=== PATIENT | male | born 1985 | race Caucasian/White ===

== ENCOUNTER 2022-02-19 06:57 | Outpatient (REF) | payer BC, SELFPAY ==
[2022-02-19 07:05] LABS: MANUAL DIFF FLAG NO
[2022-02-19 07:35] LABS: Basophils Percent Auto 0.3 % (0-2); Eosinophils Absolute Auto 0.2 X10*3/uL (0.0-0.4); Eosinophils Percent Auto 2.8 % (0-4); Hematocrit 45.6 % (42.0-52.0); Hemoglobin 15.3 g/dl (14.0-18.0); Imm Gran Abs Auto 0.02 X10*3/uL (0.00-0.03); Imm Gran Pct Auto 0.3 % (0.0-0.4); Lymphocytes Absolute Auto 2.3 X10*3/uL (1.2-4.9); Lymphocytes Percent Auto 38.9 % (20-40); Mean Corpuscular HGB Conc 33.6 g/dl (31.0-36.0); Mean Corpuscular Hemoglobin 29.1 pg (27.0-33.0); Mean Corpuscular Volume 86.9 fL (80.0-98.0); Mean Platelet Volume 8.9 fL (9.4-12.4); Monocytes Absolute Auto 0.8 X10*3/uL (0.1-1.2); Monocytes Percent Auto 12.5 % (2-11); Neutrophils Absolute Auto 2.7 x10*3/uL (2.0-8.3); Neutrophils Percent Auto 45.2 % (45-73); Platelet Count 285 X10*3/uL (160-400); Red Blood Count 5.25 X10*6/uL (4.60-5.80); Red Cell Distribution Width 13.2 % (11.0-16.0)
[2022-02-19 08:02] LABS: Appearance Urine Clear; Color Urine Yellow; Glucose Urine UA Negative (Negative); Leukocyte Esterase Urine Negative (Negative); Nitrite Urine Negative (Negative); Specific Gravity - Urine 1.025 (1.005-1.025); Urine Blood Negative (Negative); Urine Ketones Negative (Negative); Urine Protein Negative (Neg-Trace)
[2022-02-19 08:06] LABS: Alanine Aminotransferase 17 U/L (0-40); Albumin Level 4.2 g/dL (3.5-5.0); Alkaline Phosphatase 76 U/L (39-117); Anion Gap 11 (12-20); Aspartate Amino Transferase 22 U/L (5-37); Bilirubin Total 0.8 mg/dL (0.0-1.0); Blood Urea Nitrogen 11 mg/dL (9-16); Calcium 9.4 mg/dL (8.4-10.2); Carbon Dioxide 27 mmol/L (22-29); Chloride 107 mmol/L (96-108); Cholesterol 194 mg/dL; Estimated Glomerular Filt Rate > 60; Glucose Fasting 90 mg/dL (60-99); HDL Cholesterol 44 mg/dL; LDL Cholesterol Calculated 133 mg/dl; Potassium 4.3 mmol/L (3.3-5.1); Sodium 141 mmol/L (135-145); Total Protein 6.8 g/dL (6.5-8.0); Triglycerides 85 mg/dL
[2022-02-19 08:24] LABS: TSH reflex Free T4 2.54 uIU/mL (0.32-4.0)
== END 2022-02-19 06:58 | disposition home or self-care (01) ==
LOC: HO.LAB 06:57
PROVIDERS: PCP Nurse Practitioner Family; Visit Provider Nurse Practitioner Family
DX: Z00.00 Encounter for general adult medical examination without abnormal findings (principal)
CPT/HCPCS: 36415; 80053; 80061; 81003; 84443; 85025

== ENCOUNTER 2023-02-20 10:16 | Outpatient (AMB) | payer OTHER, SELFPAY ==
--- NOTE | 2023-02-20 10:41 | A.OFFPC_ITS ---
Vital Signs 02/20/23 10:44 Height 5 ft 7 in Weight 171 lb BMI 26.8 BP 114/80 Blood Pressure Location Rt brachial Position Sitting Pulse 64 Pulse Source Pulse Oximeter Pulse Oximetry (%) 98 Oxygen Delivery Method Room Air Intake Visit Reasons: Annual PE Intake Note: Patient here for physical exam. no new issues or concerns. Allergies No Known Allergies Allergy (Verified 02/20/23 12:03) Medication List - Last Reconciled 02/20/23 by [facility] Gamez No Known Home Meds Tobacco use date assessed: 02/20/23 Dental Screening Dental Screen Date: 02/20/23 Did you have a dental visit in the last 12 months?: No Did you have a dental problem in the last 6 months where you did not have access to dental care?: No Was dental information given to patient?: No HPI Annual PE HPI Details Pt is here for a PE. Will order labs. 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 1. Little interest or pleasure in doing things: not at all 2. Feeling down, depressed, or hopeless: not at all 3. Trouble falling or staying asleep, or sleeping too much: several days 4. Feeling tired or having little energy: not at all 5. Poor appetite or overeating: not at all 6. Feeling bad about yourself - or that you are a failure or have let yourself or your family down: not at all 7. Trouble concentrating on things, such as reading the newspaper or watching television: not at all 8. Moving or speaking so slowly that other people could have noticed. Or the opposite - being so fidgety or restless that you have been moving around a lot more than usual: not at all 9. Thoughts that you would be better off or of hurting yourself in some way: not at all Total score: 1 Depression Screening Interpretation: Negative Depression Screening Done: Yes 46382 - PHQ-9 Billing: Yes Source: Developed by Drs. Rudy Wasserman, Jr Tejeda and colleagues, with an educational lamar from [email or web address] Thrive Questionnaire Date Thrive assessed: 02/20/23 I am a: Patient What is your living situation today?: I have a steady place to live Within the past 12 months, did the food you bought not last and you didn't have the money to get more?: Never true Within the past 12 months, did you worry whether your food would run out before you got money to buy more?: Never true Do you have trouble paying for medicines?: No Do you have trouble getting transportation to medical appointments?: No Do you have trouble paying your heating and electricity bill?: No Do you have trouble taking care of your child, family member or friend?: No Do you have trouble with day-to-day activities such as bathing, preparing meals, shopping, managing finances, etc.?: No Are you currently unemployed and looking for a job?: No Are you interested in more education?: No AUDIT C Alcohol Use Questionnaire (AUDIT-C) 1. How often do you have a drink containing alcohol?: Never 3. How often do you have six or more drinks on one occasion?: Never Total Score: 0 Score Reviewed/Action Taken: No AFSHIN-7 AMB Questionnaire AFSHIN-7 Date AFSHIN - 7 assessed: 02/20/23 Feeling nervous, anxious, or on edge: 0 = Not at all Not being able to stop or control worryin = Not at all Worrying too much about different things: 0 = Not at all Trouble relaxin = Not at all Being so restless that it is hard to sit still: 0 = Not at all Becoming easily annoyed or irritable: 1 = Several days Feeling afraid as if something awful might happen: 0 = Not at all Total AFSHIN-7 score (0-4 normal; 5-9 mild; 10-14 moderate; 15-21 severe): 1 Source: Developed by Maegan Genao Kurt Kroenke and colleagues, with an educational lamar from [employer]. AFSHIN-7 Assessment Billing AFSHIN-7 Assessment Tool: AFSHIN-7 Assessment 08613 Review of Systems Const Denies chills and Denies fever(s) Eyes Denies blurry vision ENT Denies vertigo, Denies dizziness and Denies sore throat Card Denies chest pain at rest, Denies chest pain with activity, Denies diaphoresis, Denies dyspnea and Denies dyspnea on exertion Resp Denies cough, Denies dyspnea, Denies dyspnea on exertion and Denies wheezing GI Denies abdominal pain, Denies melena, Denies hematochezia, Denies constipation, Denies diarrhea and Denies loose stools Denies hematuria Musc Denies numbness and Denies tingling Skin/Breast Denies lesions Neuro Denies vertigo, Denies dizziness, Denies numbness and Denies tingling Psych Denies anxiety, Denies depression, Denies homicidal ideation, Denies suicidal ideation and Denies other (substance abuse) Aller/Immun Denies wheezing Physical exam (Primary Care) Vital Signs: Last Vital Signs Pulse 64 02/20/23 10:44 BP 114/80 02/20/23 10:44 Pulse Ox 98 02/20/23 10:44 Oxygen Delivery Method Room Air 02/20/23 10:44 BMI result Body Mass Index 26.8 Tobacco/Smoking Status: Tobacco use Status Tobacco use date assessed 02/20/23 02/20/23 10:46 Patient Tobacco Use Status Never used Tobacco 02/20/23 10:43 e-Cigarette/Vaping Use Never Used 02/20/23 10:43 PHQ-9: PHQ-9 Score PHQ-9: Total score 1 02/20/23 11:13 Depression Screening Interpretation: Negative Thrive Assessment: Date of Thrive Assessment Date Thrive assessed 02/20/23 02/20/23 11:13 Const General: cooperative Nutritional Appearance: well nourished Orientation/consciousness: patient oriented x3 HENMT Head: Yes normal to inspection, Yes normocephalic and Yes atraumatic Ears: TM's normal bilaterally Eyes General: appearance normal, both eyes and all related structures Alignment and Position: alignment normal and position normal Neck Neck: Yes normal visual inspection and Yes no lymphadenopathy Thyroid: Thyroid normal Resp Effort & Inspection: normal respiratory effort Auscultation: clear to auscultation bilaterally Cardio Rate: regular rate Rhythm: regular rhythm Heart sounds: S1 normal heart sound present, S2 normal heart sound present and no murmurs GI Palpation (GI): Soft to palpation and nontender Auscultation: normal bowel sounds Male General Exam: Yes normal external exam Penis: normal penis Scrotum: scrotum normal, testes descended bilaterally and no inguinal hernias Testes: no testicular mass Skin Rashes: no rashes Neuro General: patient oriented x3, moves all extremities, no focal motor deficits and deep tendon reflexes 2+ bilaterally Romberg Test: Negative Psych Appearance: grossly normal Mental Status: mental status grossly normal Speech and movement: Normal speech and movement present Affect: normal affect Attitude: cooperative Thought process: Normal thought process present Thought content: Normal thought content present Insight: Good insight present (Psych) Judgement: Good judgement present (Psych) Assessment and Plan Assessment & Plan (1) Physical exam: Code(s): Z00.00 - Encounter for general adult medical examination without abnormal findings Plan: Labs ordered Plan The patient agreed to the use of a medical coding manager for this encounter. Scribed for [facility] Olvera by Shamika Ruelas medical coding manager, on 02/20/2023 at 10:50 EST. Orders: Orders Complete Blood Count Auto Diff Today Z00.00 - Encounter for general adult medical examination without abnormal findings Comprehensive [place]. Panel Fast Today Z00.00 - Encounter for general adult medical examination without abnormal findings TSH reflex Free T4 Today Z00.00 - Encounter for general adult medical examination without abnormal findings UA CC w/rflx Micro + Cult Today Z00.00 - Encounter for general adult medical examination without abnormal findings Lipid Panel Today Z00.00 - Encounter for general adult medical examination without abnormal findings Coding Level of Care Code Est Pt Prev Care 18-39y(12434) Diagnoses Physical exam Z00.00 Additional Codes AFSHIN-7 Assessment Billing - AFSHIN-7 Assessment Tool: AFSHIN-7 Assessment 90079 ([id number])
[2023-02-20 10:44] VITALS: BP 114/80; PULSE 64; O2SAT 98; BMI 26.8
== END 2023-02-20 11:42 | disposition home or self-care (01) ==
PROVIDERS: Visit Provider Nurse Practitioner Family
DX: Z00.00 Encounter for general adult medical examination without abnormal findings (principal)
CPT/HCPCS: 99395

== ENCOUNTER 2024-02-23 09:48 | Outpatient (AMB) | payer OTHER, SELFPAY ==
[2024-02-23 09:50] VITALS: BP 110/74; PULSE 76; O2SAT 98; BMI 27.2
--- NOTE | 2024-02-23 09:50 | A.OFFPC_ITS ---
Vital Signs 02/23/24 09:50 Height 5 ft 7 in Weight 174 lb BMI 27.2 BP 110/74 Blood Pressure Location Rt brachial Position Sitting Pulse 76 Pulse Source Pulse Oximeter Pulse Oximetry (%) 98 Intake Visit Reasons: PE Intake Note: pt is here for PE Nightman Required: No Accompanied by: Self / Same As Patient Allergies No Known Allergies Allergy (Verified 02/23/24 09:51) Medication List - Last Reconciled 02/23/24 by [facility] Gamez No Known Home Meds Tobacco use date assessed: 02/23/24 Dental Screening Dental Screen Date: 02/23/24 Did you have a dental visit in the last 12 months?: Yes Did you have a dental problem in the last 6 months where you did not have access to dental care?: No Was dental information given to patient?: Patient has dentist HPI PE HPI Details History of Present Illness The patient is a 38-year-old male presenting for an annual physical examination. During the evaluation, the patient reported no specific health concerns. He denied any history or present issues with chest pain, shortness of breath, constipation, or diarrhea. Additionally, the patient confirmed there are no symptoms of anxiety or depression, nor any suicidal or homicidal ideations. Refused flu vaccine Health Maintenance Social History Review of Systems - Cardiovascular: Denies chest pain. - Respiratory: Denies shortness of breat h. - Gastrointestinal: Denies constipation and diarrhea. - Psychological: Denies suicidal ideatio n, homicidal ideation, anxiety, depression. Physical Exam General: Cooperative, healthy appearing, comfortable, no acute distress and well developed Orientation: Patient oriented x3 Limitations: No limitations Head: Normal to inspection Ears: Hearing grossly normal bilaterally Nose: Normal external nose present Face and sinus: Normal facial exam Eyes: Appearance normal, both eyes and all related structures Neck: Normal visual inspection and Yes full ROM Respiratory: Normal respiratory effort and able to speak in complete sentences. Clear to auscultation bilaterally Cardiovascular: Regular rate and rhythm. Normal S1 and S2 GI: Normal to inspection. Soft to palpation and nontender Skin: No rashes or lesions noted Neuro: Patient oriented x3 Extremities: Normal to inspection Results Plan - Conduct thorough annual physical exami [facility] [place] as scheduled. - Reassure patient and continue routine health screenings and preventative care as required. Patient was informed and verbally consented to the use of an ambient scribe for clinic note documentation during this visit. Discussion Notes During the visit, I confirmed with the patient that there are no current health issues or psychological concerns. We reviewed the importance of routine physical evaluations as part of preventative healthcare. I reassured the patient that screenings and preventative measures are leo components of maintaining health and well-being. We did not discuss any specific diagnostic studies or procedures. No follow-ups or return precautions were indicated beyond continuing regular health maintenance. Patient Instructions - Continue with your usual health regime n. - Maintain regular annual physical exami nation appointments. - Contact the clinic for any new health concerns that may arise. [facility] Surgical History No pertinent past surgical history Family History Father High blood pressure Mother No problems noted. Social History Housing: House Patient Tobacco Use Status: Never used Tobacco e-Cigarette/Vaping Use: Never Used Second Hand Smoke Exposure: No service: No Current occupational status: employed Current occupation: [employer] [address] Current occupational exposures/hazards: No Cognitive needs: No Hearing needs: No Vision needs: No Questionnaire PHQ-9 Over the last 2 weeks, how often have you been bothered by any of the following problems? 1. Little interest or pleasure in doing things: not at all 2. Feeling down, depressed, or hopeless: not at all 3. Trouble falling or staying asleep, or sleeping too much: not at all 4. Feeling tired or having little energy: not at all 5. Poor appetite or overeating: not at all 6. Feeling bad about yourself - or that you are a failure or have let yourself or your family down: not at all 7. Trouble concentrating on things, such as reading the newspaper or watching television: not at all 8. Moving or speaking so slowly that other people could have noticed. Or the opposite - being so fidgety or restless that you have been moving around a lot more than usual: not at all 9. Thoughts that you would be better off or of hurting yourself in some way: not at all Total score: 0 Depression Screening Interpretation: Negative Depression Screening Done: Yes 12145 - PHQ-9 Billing: Yes Source: Developed by Drs. Rudy Wasserman, Maegan Ledesma, Jr Garcia and colleagues, with an educational lamar from [employer]. Thrive Questionnaire Date Thrive assessed: 02/23/24 I am a: Patient What is your living situation today?: I have a steady place to live Within the past 12 months, did the food you bought not last and you didn't have the money to get more?: Never true Within the past 12 months, did you worry whether your food would run out before you got money to buy more?: Never true Do you have trouble paying for medicines?: No Do you have trouble getting transportation to medical appointments?: No Do you have trouble paying your heating and electricity bill?: No Do you have trouble taking care of your child, family member or friend?: No Do you have trouble with day-to-day activities such as bathing, preparing meals, shopping, managing finances, etc.?: No Are you currently unemployed and looking for a job?: No Are you interested in more education?: Yes Please select the resources that you would like help with: None Currently or been in a relationship where the following occur: No concerns reported THRIVE Score: 0 AUDIT C Alcohol Use Questionnaire (AUDIT-C) 1. How often do you have a drink containing alcohol?: Never 3. How often do you have six or more drinks on one occasion?: Never Total Score: 0 Score Reviewed/Action Taken: Yes AFSHIN-7 AMB Questionnaire AFSHIN-7 Date AFSHIN - 7 assessed: 02/23/24 Feeling nervous, anxious, or on edge: 0 = Not at all Not being able to stop or control worryin = Not at all Worrying too much about different things: 0 = Not at all Trouble relaxin = Not at all Being so restless that it is hard to sit still: 0 = Not at all Becoming easily annoyed or irritable: 0 = Not at all Feeling afraid as if something awful might happen: 0 = Not at all Total AFSHIN-7 score (0-4 normal; 5-9 mild; 10-14 moderate; 15-21 severe): 0 Source: Developed by Maegan Genao, Jr Kroenke and colleagues, with an educational lamar from [employer]. AFSHIN-7 Assessment Billing AFSHIN-7 Assessment Tool: AFSHIN-7 Assessment 28572 Physical exam (Primary Care) Vital Signs: Last Vital Signs Pulse 76 02/23/24 09:50 BP 110/74 02/23/24 09:50 Pulse Ox 98 02/23/24 09:50 BMI result Body Mass Index 27.2 Tobacco/Smoking Status: Tobacco use Status Tobacco use date assessed 02/23/24 02/23/24 09:52 Patient Tobacco Use Status Never used Tobacco 02/23/24 09:52 e-Cigarette/Vaping Use Never Used 02/23/24 09:52 PHQ-9: PHQ-9 Score PHQ-9: Total score 0 02/23/24 09:52 Depression Screening Interpretation: Negative Thrive Assessment: Date of Thrive Assessment Date Thrive assessed 02/23/24 02/23/24 09:52 Currently or been in a relationship where the following occur: No concerns reported Coding Level of Care Code Est Pt Prev Care 40-64y(21098) Diagnoses Physical exam Z00.00 Additional Codes AFSHIN-7 Assessment Billing - AFSHIN-7 Assessment Tool: AFSHIN-7 Assessment 69768 ([id number]) PHQ-9 - 20950 - PHQ-9 Billing: Yes ([id number]) Assessment & Plan Assessment & Plan (1) Physical exam: Code(s): Z00.00 - Encounter for general adult medical examination without abnormal findings Category: Medical Plan . Orders: Orders Comprehensive [place]. Panel Fast Today Z00.00 - Encounter for general adult medical examination without abnormal findings Complete Blood Count Auto Diff Today Z00.00 - Encounter for general adult medical examination without abnormal findings TSH reflex Free T4 Today Z00.00 - Encounter for general adult medical examination without abnormal findings UA CC w/rflx Micro + Cult Today Z00.00 - Encounter for general adult medical examination without abnormal findings Lipid Panel Today Z00.00 - Encounter for general adult medical examination without abnormal findings
== END 2024-02-23 10:38 | disposition home or self-care (01) ==
PROVIDERS: PCP Nurse Practitioner Family; Visit Provider Nurse Practitioner Family
DX: Z00.00 Encounter for general adult medical examination without abnormal findings (principal)

== ENCOUNTER → 2024-02-23 09:48 | Outpatient (BNVA) | payer OTHER, SELFPAY | PROVIDERS: PCP Nurse Practitioner Family; Visit Provider Nurse Practitioner Family | DX: Z00.00 Encounter for general adult medical examination without abnormal findings (principal) | CPT/HCPCS: 96127 ==

== ENCOUNTER 2024-07-06 22:57 | Emergency (ER) | payer OTHER, SELFPAY ==
--- NOTE | ~2024-07-06 | CT_ITS ---
CLINICAL HISTORY: LLQ pain divertic vs renal olic CT abdomen and pelvis with contrast Comparison: None Findings: No consolidation or effusion. There is left-sided obstructive uropathy with delayed nephrogram, mild hydroureteronephrosis and a small amount of perinephric fluid. An obstructing 2 mm calculus is seen at the ureterovesicular junction. The gallbladder and the rest of the solid organs demonstrate no significant abnormalities. No bowel obstruction, pneumoperitoneum, or pneumatosis. Pelvic contents unremarkable. Normal appendix. No acute fracture. IMPRESSION: There is left-sided obstructive uropathy with delayed nephrogram, mild hydroureteronephrosis and a small amount of perinephric fluid. An obstructing 2 mm calculus is seen at the ureterovesicular junction. This document has been electronically signed by: Jimy Cortez MD on 07/07/2024 11:49:26
[2024-07-06 23:15] VITALS: BP 132/82; PULSE 59; RESP 18; TEMP 36.1; O2SAT 100; BMI 25.8
[2024-07-06 23:55] LABS: MANUAL DIFF FLAG NO
[2024-07-06 23:56] LABS: Basophils Percent Auto 0.2 % (0-2); Eosinophils Absolute Auto 0.1 X10*3/uL (0.0-0.4); Eosinophils Percent Auto 1.1 % (0-4); Hemoglobin 15.1 g/dl (14.0-18.0); Imm Gran Abs Auto 0.03 X10*3/uL (0.00-0.03); Imm Gran Pct Auto 0.3 % (0.0-0.4); Lymphocytes Absolute Auto 1.7 X10*3/uL (1.2-4.9); Lymphocytes Percent Auto 18.5 % (20-40); Mean Corpuscular HGB Conc 35.1 g/dl (31.0-36.0); Mean Corpuscular Hemoglobin 29.8 pg (27.0-33.0); Mean Platelet Volume 8.8 fL (9.4-12.4); Monocytes Absolute Auto 0.8 X10*3/uL (0.1-1.2); Monocytes Percent Auto 8.5 % (2-11); Neutrophils Absolute Auto 6.6 x10*3/uL (2.0-8.3); Neutrophils Percent Auto 71.4 % (45-73); Platelet Count 280 X10*3/uL (160-400); Red Blood Count 5.06 X10*6/uL (4.60-5.80); Red Cell Distribution Width 13.2 % (11.0-16.0); White Blood Count 9.3 X10*3/uL (4.8-10.8)
[2024-07-07 00:07] LABS: Appearance Urine Turbid; Color Urine Yellow; Glucose Urine UA Negative (Negative); Leukocyte Esterase Urine Negative (Negative); Nitrite Urine Negative (Negative); PH >= 9.0 (5.0-9.0); Specific Gravity - Urine 1.025 (1.005-1.025); Urine Blood Negative (Negative); Urine Ketones Trace mg/dL (Negative); Urine Protein Trace mg/dL (Neg-Trace)
[2024-07-07 00:13] LABS: Alanine Aminotransferase 21 U/L (0-40); Albumin Level 4.7 g/dL (3.5-5.0); Alkaline Phosphatase 72 U/L (39-117); Anion Gap 13 (12-20); Aspartate Amino Transferase 28 U/L (5-37); Bilirubin Direct 0.1 mg/dL (0.0-0.5); Bilirubin Total 0.5 mg/dL (0.0-1.0); Blood Urea Nitrogen 14 mg/dL (9-16); Calcium 9.5 mg/dL (8.4-10.2); Carbon Dioxide 24 mmol/L (22-29); Chloride 107 mmol/L (96-108); Creatinine Clr Calc Pharmacy 75.8; Estimated Glomerular Filt Rate > 60; Glucose Random 128 mg/dL (60-115); Lipase 19 U/L (8-78); Potassium 3.7 mmol/L (3.3-5.1); Sodium 140 mmol/L (135-145); Total Protein 7.3 g/dL (6.5-8.0)
[2024-07-07] MEDS: Ketorolac Tromethamine 15 MG/ML VIAL IVPUSH (03:13)
[2024-07-07] MEDS: Morphine Sulfate 4 MG/ML CARTRIDGE IVPUSH (03:14)
[2024-07-07] MEDS: 0.9 % Sodium Chloride 1,000 ML 999 ML IV (03:17)
[2024-07-07 03:21] VITALS: BP 135/82; PULSE 78; RESP 20; TEMP 36.7; O2SAT 99
--- NOTE | 2024-07-07 03:50 | ED_ITS ---
HPI - General Adult General Chief complaint: Abdominal Pain Stated complaint: severe abd pain Time Seen by Provider: 07/07/24 02:23 Source: patient Limitations: no limitations History of Present Illness ED Provider: Lili Melendez PA-C HPI narrative: 38-year-old otherwise healthy male presents with left lower abdominal pain that began this evening. Pain has become severe, unable to describe the nature of his discomfort. The pain radiates to the groin at times. The patient feels as if he has the urge to have a bowel movement and urinate. Associated nausea vomiting. Denies history of kidney stones, dysuria or hematuria. No fever. No diarrhea. Denies testicular pain or swelling. Related Data Previous Rx's ?Medication ?Instructions ?Recorded ondansetron 4 mg disintegrating 4 mg PO Q8H PRN nausea and 07/07/24 tablet vomiting #14 tabs oxycodone 5 mg capsule 5 mg PO Q6H PRN breakthrough pain 07/07/24 #5 caps tamsulosin 0.4 mg capsule 0.4 mg PO DAILY #14 caps 07/07/24 Allergies Allergy/AdvReac Type Severity Reaction Status Date / Time No Known Allergies Allergy Verified 07/06/24 23:19 Review of Systems 2 Review of Systems: Yes all other systems are reviewed and are negative Constitutional: Constitutional: Denies fatigue and Denies fever(s) Cardiovascular: Cardiovascular: Denies chest pain and Denies dyspnea Respiratory: Respiratory: Denies cough and Denies dyspnea Gastrointestinal: Gastrointestinal: Reports abdominal pain, Denies diarrhea, Reports nausea and Reports vomiting Genitourinary: Genitourinary: Denies hematuria, Denies dysuria, Denies flank pain, Denies penile discharge, Denies scrotal swelling and Denies testicular pain Endocrine: Endocrine: Denies fatigue [facility] Past Medical History Attestation statement: The following information was validated with the patient. Surgical History No pertinent past surgical history Family History Family History Father High blood pressure Mother No problems noted. 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[address] Current occupational exposures/hazards: No Cognitive needs: No Hearing needs: No Vision needs: No Physical Exam ED Vital Signs: Vital Signs - 24 hr 07/06/24 23:15 07/07/24 03:21 07/07/24 05:30 Temperature 97.0 F 98.1 F 98.0 F Pulse Rate 59 78 76 Respiratory Rate 18 20 20 Blood Pressure 132/82 135/82 116/72 Pulse Oximetry 100 99 97 Oxygen Delivery Method Room Air Room Air Room Air 07/07/24 07:53 07/07/24 10:22 Temperature 97.7 F 97.7 F Pulse Rate 72 59 Respiratory Rate 16 18 Blood Pressure 112/70 123/71 Pulse Oximetry 96 97 Oxygen Delivery Method Room Air Room Air BMI result Body Mass Index 25.8 Const Other: Alert Orientation/consciousness: patient oriented x3 Resp Effort & Inspection: normal respiratory effort Cardio Other: Normal peripheral perfusion GI Other: Abdomen is soft, nontender nondistended no guarding, General: Yes no CVA tenderness Back/Spine/Pelvis Back: no CVA tenderness Skin Other: Warm dry no rash Neuro General: patient oriented x3, gait normal, no focal motor deficits and CN's II- XI intact bilaterally Psych Other: Cooperative Course Course Course Narrative: Signed out to night team pending imaging and final disposition Medications Administered Discontinued Medications Generic Name Dose Route Start Last Admin Trade Name Caseyq PRN Reason Stop Dose Admin Sodium Chloride 1,000 mls @ 999 mls/hr 07/07/24 03:00 07/07/24 07:12 Ns IV 07/07/24 04:00 Infused .Q1H1M [place] Infusion Iohexol 85 ml 07/07/24 03:54 07/07/24 03:54 Iohexol 350 Mg/Ml 100 Ml Infus..Btl IV 07/07/24 03:55 85 ml ONCE ONE Administration Ketorolac Tromethamine 15 mg 07/07/24 02:52 07/07/24 03:13 Ketorolac Tromethamine 15 Mg/Ml Vial IVPUSH 07/07/24 02:53 15 mg ONCE ONE Administration Morphine Sulfate 4 mg 07/07/24 02:52 07/07/24 03:14 Morphine Sulfate 4 Mg/Ml Cartridge IVPUSH 07/07/24 02:53 4 mg ONCE ONE Administration Protocol Medical Decision Making Medical Decision Making [facility] Narrative: 38-year-old otherwise healthy male presents with left lower abdominal pain that began this evening. Pain has become severe, unable to describe the nature of his discomfort. The pain radiates to the groin at times. The patient feels as if he has the urge to have a bowel movement and urinate. Associated nausea vomiting. Denies history of kidney stones, dysuria or hematuria. No fever. No diarrhea. Denies testicular pain or swelling. No chronic issues History: Per patient I have considered the following differential diagnoses: Renal colic, diverticulitis, UTI, pyelonephritis, torsion Plan: Given distribution of discomfort in nature of symptoms, I am considering diverticulitis versus renal colic. It is really unclear. Screening labs including a urinalysis were already obtained from triage, they are overall all unremarkable, no hematuria urine not infected etc.. Obtaining a CT scan. Giving Toradol and morphine for pain along with IV fluid. Thought about torsion, however the patient denies testicular pain or swelling. He has no CVA tenderness, is afebrile, without urinary symptoms to suggest pyelonephritis. I have independently reviewed the following tests: Labs: No leukocytosis, not anemic, no electrolyte abnormality noted, urine not infected no hematuria CT abdomen and pelvis is pending at the time of sign-out 09:24 I assumed care of this patient from my colleague, physician employment legal assistant Lili Melendez at 04:00 hours patient was pending CT scan abdomen pelvis with IV contrast. At the end of my shift, the CT scan has been done but the radiologist has not read the study at therefore the patient's care was turned over to my colleague, Dr. Rafita Arora. [id number] - I assumed care of this patient from Dr. Leigh with disposition pending CT imaging. CT imaging demonstrates IMPRESSION: There is left-sided obstructive uropathy with delayed nephrogram, mild hydroureteronephrosis and a small amount of perinephric fluid. An obstructing 2 mm calculus is seen at the ureterovesicular junction. This document has been electronically signed by: Jimy Cortez MD on 07/07/2024 11:49:26 Dictated By: Jimy Cortez MD Signed By: <Electronically signed by Jimy Cortez MD in OV> 07/07/24 11 on reexamination, patient is well-appearing and in no acute distress. Patient reports mild discomfort but states that pain is well- controlled at this time. I reviewed the patient's CT imaging, blood work and urinalysis as below. I discussed these results with the patient. The patient is provided tamsulosin, Tylenol and ibuprofen. ?There is no indication for further emergent evaluation in this otherwise well-appearing patient as above. ?Patient is provided written and verbal instructions, educational materials, recommendations for outpatient follow-up, prescription for oxycodone/Zofran/tamsulosin, referral to Urology, strict return precautions and teach back is performed. ?Patient states understanding and agreement with plan of care. ?Patient is discharged home in stable and improved condition. Admission/Observation Consideration of admission/observation: Escalation of care including admission/observation considered Lab Data MDM Lab Attestation statement: I reviewed the patient's lab results. CBC, metabolic panel are unremarkable, lipase within normal limits, urinalysis unremarkable with no evidence of urinary tract infection. 07/06/24 23:46 07/06/24 23:46 Labs: Lab Results 07/06/24 Range/Units 23:46 WBC 9.3 (4.8-10.8) X10*3/uL RBC 5.06 (4.60-5.80) X10*6/uL Hgb 15.1 (14.0-18.0) g/dl Hct 43.0 (42.0-52.0) % MCV 85.0 (80.0-98.0) fL MCH 29.8 (27.0-33.0) pg MCHC 35.1 (31.0-36.0) g/dl RDW 13.2 (11.0-16.0) % Plt Count 280 (160-400) X10*3/uL MPV 8.8 L (9.4-12.4) fL Immature Gran % (Auto) 0.3 (0.0-0.4) % Neut % (Auto) 71.4 (45-73) % Lymph % (Auto) 18.5 L (20-40) % [place] % (Auto) 8.5 (2-11) % Eos % (Auto) 1.1 (0-4) % Baso % (Auto) 0.2 (0-2) % Lymph # (Auto) 1.7 (1.2-4.9) X10*3/uL [place] # (Auto) 0.8 (0.1-1.2) X10*3/uL Eos # (Auto) 0.1 (0.0-0.4) X10*3/uL Baso # (Auto) 0.0 (0.0-0.2) X10*3/uL Abs Immat Gran (auto) 0.03 (0.00-0.03) X10*3/uL Absolute Neuts (auto) 6.6 (2.0-8.3) x10*3/uL Absolute Nucleated RBC 0.000 (0.0-0.012) X10*3/uL Nucleated RBC % (auto) 0.0 (0.0-0.2) /100WBC Sodium 140 (135-145) mmol/L Potassium 3.7 (3.3-5.1) mmol/L Chloride 107 (96-108) mmol/L Carbon Dioxide 24 (22-29) mmol/L Anion Gap 13 (12-20) BUN 14 (9-16) mg/dL Creatinine 1.21 (0.5-1.4) mg/dL Estim Creat Clear Calc 75.8 Estimated GFR > 60 Random Glucose 128 H (60-115) mg/dL Calcium 9.5 (8.4-10.2) mg/dL Total Bilirubin 0.5 (0.0-1.0) mg/dL Direct Bilirubin 0.1 (0.0-0.5) mg/dL AST 28 (5-37) U/L ALT 21 (0-40) U/L Alkaline Phosphatase 72 (39-117) U/L Total Protein 7.3 (6.5-8.0) g/dL Albumin 4.7 (3.5-5.0) g/dL Lipase 19 (8-78) U/L Urine Color Yellow Urine Appearance Turbid Urine pH >= 9.0 (5.0-9.0) Ur Specific [place] 1.025 (1.005-1.025) Urine Protein Trace (Neg-Trace) mg/dL Urine Glucose (UA) Negative (Negative) mg/dL Urine Ketones Trace (Negative) mg/dL Urine Blood Negative (Negative) Urine Nitrite Negative (Negative) Ur Leukocyte Esterase Negative (Negative) Discharge Plan Discharge Clinical Impression: Calculus of kidney Patient Disposition: Home, Self-Care Instructions: Kidney Stones (ED) Additional Instructions: You were seen and evaluated in the emergency room. You were found to have a 2 mm kidney stone. You were given a referral to follow up with Urology. Please follow up in the next 1-2 weeks. Please take 600 mg ibuprofen every 6 hours with food and water as needed for pain. You may take 1000 mg Tylenol every 8 hours as needed for additional You were given a prescription for a medication called tamsulosin to help relax your ureters and allow for passage of your kidney stone. You were given a prescription for and antinausea medicine called Zofran. Please take as directed. Follow up with your primary care doctor in 1 week as needed. Return to the emergency room with any new concerns or symptoms. Prescriptions: New tamsulosin 0.4 mg capsule 0.4 mg PO DAILY Qty: 14 0RF oxycodone 5 mg capsule 5 mg PO Q6H PRN (Reason: breakthrough pain) Qty: 5 0RF Rx Instructions: Partial Fill upon patient request. ondansetron 4 mg tablet,disintegrating 4 mg PO Q8H PRN (Reason: nausea and vomiting) Qty: 14 0RF Referrals: [facility] [Provider Group] Print Language: Syriac
[2024-07-07] MEDS: iohexoL 350 MG/ML 100 ML INFUS..BTL 85 ML IV (03:54)
[2024-07-07 05:30] VITALS: BP 116/72; PULSE 76; RESP 20; TEMP 36.7; O2SAT 97
[2024-07-07 07:53] VITALS: BP 112/70; PULSE 72; RESP 16; TEMP 36.5; O2SAT 96
[2024-07-07 10:22] VITALS: BP 123/71; PULSE 59; RESP 18; TEMP 36.5; O2SAT 97
[2024-07-07 12:57] VITALS: BP 116/74; PULSE 66; RESP 18; TEMP 36.7; O2SAT 98
[2024-07-07 13:07] VITALS: BP 116/74; PULSE 66; RESP 18; TEMP 36.7; O2SAT 98
[2024-07-07] MEDS: Acetaminophen 325 MG TABLET 975 MG PO (13:21)
[2024-07-07] MEDS: Tamsulosin HCL 0.4 MG CAPSULE PO (13:22)
[2024-07-07] MEDS: Ibuprofen 600 MG TABLET PO (13:22)
== END 2024-07-07 13:28 | disposition home or self-care (01) ==
PROVIDERS: Emergency Provider Emergency Medicine Emergency Medical Services; PCP Nurse Practitioner Family
DX: N20.0 Calculus of kidney (principal); R11.0 Nausea; R10.32 Left lower quadrant pain; Z79.899 Other long term (current) drug therapy
CPT/HCPCS: 36415; 74177; 80053; 81003; 82248; 83690; 85025; 96361; 96374; 96375; 99285; J1885; J2270; Q9967

== ENCOUNTER → 2024-07-07 02:52 | Outpatient (BNV) | payer OTHER, SELFPAY | PROVIDERS: Emergency Provider Emergency Medicine Emergency Medical Services; PCP Nurse Practitioner Family; Visit Provider Radiology Diagnostic Radiology | DX: N20.1 Calculus of ureter (principal); N13.9 Obstructive and reflux uropathy, unspecified | CPT/HCPCS: 74177 ==

== ENCOUNTER 2024-07-15 07:05 | Outpatient (AMB) | payer OTHER, SELFPAY ==
--- NOTE | 2024-07-15 07:30 | A.OFFPC_ITS ---
Intake Visit Reasons: ED follow up Allergies No Known Allergies Allergy (Verified 07/06/24 23:19) Tobacco use date assessed: 02/23/24 Dental Screening Dental Screen Date: 02/23/24 HPI ED follow up HPI Details History of Present Illness The patient is a 38-year-old male presenting for a follow-up of an emergency room visit concerning left lower abdominal pain. The pain initially localized in the left lower quadrant eventually extended to the groin area. The patient encountered simultaneous urges to urinate and bowel movement during the episode. Diagnostic evaluation at the emergency room included a computed tomography (CAT) scan which indicated left-sided obstructive uropathy, mild hydroureteronephrosis, and an obstructing 2 mm nephrolith inhabiting the ureterovesical junction. There was an absence of fevers and chills during the episode. The patient reports having successfully passed the stone, thereafter claiming complete relief from symptoms. There have been no other systemic complaints such as fevers, chills, hematuria, or flank pain since. Review of Systems - Genitourinary: Denies hematuria, flank pain. - Constitutional: Denies fevers, chills. - Gastrointestinal: Reports urge to defe meng at the time of initial symptoms; currently resolved. - General: Denies nausea or vomiting. Plan The management plan for the resolved obstructive uropathy focuses on preventing recurrence through increased hydration. The importance of urology follow-up was reinforced to monitor and preclude future episodes of nephrolithiasis. It was stressed that any recurrence of symptomatic episodes should prompt immediate medical review due to potential risks. The patient reports symptomatic relief, with no current symptoms indicating obstruction or infection. Discussion Notes During this consultation, I discussed with the patient the resolution of his left-sided obstructive uropathy due to nephrolithiasis following the passage of a stone. We reviewed the importance of staying well-hydrated to prevent further stone formation. I explained that he should seek urgent medical evaluation if he experiences recurrent pain, as obstruction can lead to complications. A recommendation for urological follow-up was provided to assess all stones' complete management and explore further preventive measures. The patient was informed of the absence of current concerning symptoms, such as fever or hematuria, which contributes to a favorable prognosis post-stone passage. Patient Instructions - Drink plenty of water to stay hydrated . - Follow up with a urologist as advised. - Go to the emergency room if you experi ence severe pain, fever, or any new symptoms. - Inform your healthcare provider if any concerns arise promptly. - Monitor for recurrent episodes of kidn ey stones. [facility] Surgical History No pertinent past surgical history Family History Father High blood pressure Mother No problems noted. Social History Housing: House Patient Tobacco Use Status: Never used Tobacco e-Cigarette/Vaping Use: Never Used Second Hand Smoke Exposure: No service: No Current occupational status: employed Current occupation: [employer] Current occupational exposures/hazards: No Cognitive needs: No Hearing needs: No Vision needs: No Questionnaire Thrive Questionnaire Date Thrive assessed: 02/16/24 I am a: Patient What is your living situation today?: I have a steady place to live Within the past 12 months, did the food you bought not last and you didn't have the money to get more?: Never true Within the past 12 months, did you worry whether your food would run out before you got money to buy more?: Never true Do you have trouble paying for medicines?: No Do you have trouble getting transportation to medical appointments?: No Do you have trouble paying your heating and electricity bill?: No Do you have trouble taking care of your child, family member or friend?: No Do you have trouble with day-to-day activities such as bathing, preparing meals, shopping, managing finances, etc.?: No Are you currently unemployed and looking for a job?: No Are you interested in more education?: Yes Please select the resources that you would like help with: None Currently or been in a relationship where the following occur: No concerns reported THRIVE Score: 0 AFSHIN-7 AMB Questionnaire AFSHIN-7 Date AFSHIN - 7 assessed: 02/23/24 Source: Developed by Drs. Rudy Wasserman, Maegan Ledesma, Jr Garcia and colleagues, with an educational lamar from [employer]. Physical exam (Primary Care) Tobacco/Smoking Status: Tobacco use Status Tobacco use date assessed 02/23/24 02/23/24 09:52 Patient Tobacco Use Status Never used Tobacco 07/07/24 01:53 e-Cigarette/Vaping Use Never Used 02/23/24 09:52 Thrive Assessment: Date of Thrive Assessment Date Thrive assessed 02/16/24 07/12/24 11:39 Currently or been in a relationship where the following occur: No concerns reported Coding Level of Care Code Tele Est Pt Level 3 (87329) Diagnoses Calculus of kidney N20.0 Hydronephrosis N13.30 Assessment & Plan Assessment & Plan (1) Calculus of kidney: Code(s): N20.0 - Calculus of kidney Category: Medical (2) Hydronephrosis: Code(s): N13.30 - Unspecified hydronephrosis Category: Medical Plan .
== END 2024-07-15 08:09 | disposition home or self-care (01) ==
LOC: HO.HMCC 07:05
PROVIDERS: PCP Nurse Practitioner Family; Visit Provider Nurse Practitioner Family
DX: N20.0 Calculus of kidney (principal); N13.30 Unspecified hydronephrosis

== ENCOUNTER → 2024-07-15 07:05 | Outpatient (BNVA) | payer OTHER, SELFPAY | PROVIDERS: PCP Nurse Practitioner Family; Visit Provider Nurse Practitioner Family ==

== ENCOUNTER 2024-07-19 14:48 | Outpatient (AMB) | payer OTHER, SELFPAY ==
--- NOTE | 2024-07-19 15:13 | MHC.OFFVIS ---
Intake Visit Reasons: Kindey Stones Intake Note: New patient presents today for initial visit for kidney stones Urology Medication:Tamsulosin Blood Thinner:None Antibiotic Allergies:None Allergies No Known Allergies Allergy (Verified 07/19/24 15:13) HPI Comments Details: History of Present Illness - The patient is a 38-year-old male presenting with follow-up for nephrolithiasis. - Left renal stone of 2mm identified on previous CT, passed spontaneously on the following Friday. - Passage noted in toilet without sensation of the event; fragmented calculus observed. - Patient reports inadequate hydration habits historically, now working to improve fluid intake. - Family history negative for recurrent nephrolithiasis, some incidence during maternal . Urinary Symptoms Review - Passage of 2mm stone from the left kidney. - No pain reported upon passage. - No urinary frequency or urgency noted. Results - CT scan demonstrating 2mm left renal calculus. - Recent urinalysis: Negative findings. Discussion Notes During the visit, we reviewed the diagnosis of nephrolithiasis with the patient, emphasizing lifestyle modification factors, primarily increasing fluid intake to prevent recurrence. I discussed the importance of dietary adjustments, including citrate-rich fluids like lemon juice, while moderating intake of oxalate-rich foods and nicky. We also outlined a 24-hour urine collection test to further investigate any metabolic contributors to stone formation. A detailed review of the process for home urine collection was provided. The patient was informed about the non-contributory family history, except during , which is commonplace. Follow-up logistics and processes for necessary laboratory delivery and submission were reiterated to the patient. [facility] Surgical History No pertinent past surgical history Family History Father High blood pressure Mother No problems noted. 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: No Cognitive needs: No Hearing needs: No Vision needs: No Review of Systems Const All systems reviewed & are unremarkable except as noted in HPI and below Reports no additional complaints Eyes Reports no additional complaints ENT Reports no additional complaints Card Reports no additional complaints Resp Reports no additional complaints GI Reports no additional complaints Reports as per HPI Musc Reports no additional complaints Skin/Breast Reports system reviewed and no additional complaints, except as documented Neuro Reports no additional complaints Psych Reports no additional complaints Endo Reports no additional complaints Breezy/Lymph Reports no additional complaints Aller/Immun Reports no additional complaints Physical Exam Const General: healthy appearing, no acute distress and well developed Orientation/consciousness: patient oriented x3 HEENT Head: Yes normocephalic and Yes atraumatic Eyes Conjunctivae: conjunctivae normal Neck Neck: Yes normal visual inspection Chest Chest palpation & inspection: normal inspection of the chest Resp Effort & Inspection: normal respiratory effort GI Inspection: Yes normal to inspection Neuro General: patient oriented x3 Psych Appearance: grossly normal Affect: normal affect Results AMB Urinalysis, Automated UA Leukoctes 0 [place]/uL Last Edit by Lien Gomez on 07/19/24 16:47 UA Nitrite Negative Last Edit by Lien Gomez on 07/19/24 16:47 UA Urobilinogen 0.2 mg/dL Last Edit by [employer] Jason on 07/19/24 16:47 UA Protein 0 mg/dL Last Edit by [employer] Gomez on 07/19/24 16:47 UA pH 6.0 Last Edit by Lien Gomez on 07/19/24 16:47 UA Blood 0 Chevy/uL Last Edit by Lien Gomez on 07/19/24 16:47 UA Specific [place] 1.015 Last Edit by Lien Gomez on 07/19/24 16:47 UA Ketone Negative Last Edit by Lien Gomez on 07/19/24 16:47 UA Bilirubin 0 mg/dL Last Edit by Lien Gomez on 07/19/24 16:47 UA Glucose 0 mg/dL Last Edit by [employer] Gomez on 07/19/24 16:47 Results Reviewed Results Reviewed: Date of Service: 07/07/24 CLINICAL HISTORY: LLQ pain divertic vs renal olic CT abdomen and pelvis with contrast Comparison: None Findings: No consolidation or effusion. There is left-sided obstructive uropathy with delayed nephrogram, mild hydroureteronephrosis and a small amount of perinephric fluid. An obstructing 2 mm calculus is seen at the ureterovesicular junction. The gallbladder and the rest of the solid organs demonstrate no significant abnormalities. No bowel obstruction, pneumoperitoneum, or pneumatosis. Pelvic contents unremarkable. Normal appendix. No acute fracture. IMPRESSION: There is left-sided obstructive uropathy with delayed nephrogram, mild hydroureteronephrosis and a small amount of perinephric fluid. An obstructing 2 mm calculus is seen at the ureterovesicular junction. Assessment & Plan Assessment & Plan (1) Hydronephrosis: Code(s): N13.30 - Unspecified hydronephrosis Category: Medical (2) Left ureteral stone: Code(s): N20.1 - Calculus of ureter Category: Medical Plan - Drink more fluids daily, focus on water and adding lemon juice. - Avoid or limit sodas like Coke or Pepsi. - 24 hour urine collection. Discussed results via telehealth follow-up. Orders: Orders AMB Urinalysis Automated Today Z13.9 - Encounter for screening, unspecified Patient Instructions: The patient had an opportunity to ask questions regarding treatment plan. The patient expressed understanding and agreement with the above treatment plan. The patient is aware they should contact our office by phone for worsening of their current condition or the appearance of new symptoms. Compliance is encouraged with any medications and followup testing that is ordered. It is a privilege to be allowed the opportunity to participate in the urologic care of your patient. If you have any questions or concerns regarding treatment for the above conditions please do not hesitate to contact me. The office telephone contact is [phone]. This note is constructed in part using voice recognition software. While every effort has been made to ensure accuracy aircraft structural repairer errors may have been included. Yours sincerely, Pete Estrella MD Scribe Plan - Not visible on output: Patient was informed and verbally consented to the use of an ambient scribe for clinic note documentation during this visit. Coding Diagnoses Hydronephrosis N13.30 Left ureteral stone N20.1
== END 2024-07-19 15:27 | disposition home or self-care (01) ==
LOC: HO.HUSH 14:48
PROVIDERS: PCP Nurse Practitioner Family; Visit Provider Urology
DX: Z13.9 Encounter for screening, unspecified (principal)

== ENCOUNTER → 2024-07-19 14:48 | Outpatient (BNVA) | payer OTHER, SELFPAY | PROVIDERS: PCP Nurse Practitioner Family; Visit Provider Urology | DX: N20.1 Calculus of ureter (principal); N13.30 Unspecified hydronephrosis | CPT/HCPCS: 81003 ==